=== PATIENT | male | born 1990 | race Two or more races ===

== ENCOUNTER 2021-03-26 07:48 | Emergency (ER) | payer OTHER, SELFPAY ==
[2021-03-26 08:07] VITALS: BP 128/76; PULSE 95; RESP 18; TEMP 36.7; O2SAT 99
[2021-03-26 08:10] LABS: Basophils Percent Auto 0.4 % (0.2-1.2); Eosinophils Absolute Auto 0.1 K/mm3 (0-0.3); Eosinophils Percent Auto 1.1 % (0-4.4); Hematocrit 47.9 % (42.0-52.0); Hemoglobin 16.7 g/dL (14.0-18.0); Immature Granulocyte Absolute 0.06 K/mm3 (0.00-0.031); Immature Granulocyte Percent A 0.8 % (0-0.5); Lymphocytes Absolute Auto 1.72 K/mm3 (0.9-3.2); Lymphocytes Percent Auto 21.8 % (18.3-44.2); Mean Corpuscular HGB Conc 34.9 g/dl (32-36); Mean Corpuscular Hemoglobin 29.5 pg (26-34); Mean Corpuscular Volume 84.6 fl (80-100); Mean Platelet Volume 10.2 fl (7.4-10.4); Monocytes Absolute Auto 0.7 K/mm3 (0.1-0.6); Monocytes Percent Auto 8.4 % (2.6-8.5); Neutrophils Absolute Auto 5.3 K/mm3 (1.3-6.7); Neutrophils Percent Auto 67.5 % (45.5-73.1); Platelet Count Result 180 k/mm3 (150-375); Red Blood Count 5.66 M/mm3 (4.6-6.20); Red Cell Distribution Width 11.9 % (11.5-14.5); White Blood Count 7.9 K/mm3 (4.5-10.0)
[2021-03-26 08:14] LABS: Add Urine Microscopic? NO; Appearance Urine Clear (Clear); Bilirubin Urine Negative (Negative); Blood Urine Negative (Negative); Color Urine Yellow (Yellow); Glucose Urine UA Negative (Negative); Ketones Urine Negative (Negative); Leukocyte Esterase Ur Negative LEU/UL (Negative); Nitrate Urine Negative (Negative); Protein Urine Negative (Negative); Specific Grav Ur 1.023 (1.001-1.035); Urobilinogen Urine Negative mg/dL (<2.0)
[2021-03-26 08:24] LABS: Alanine Aminotransferase 30 U/L (4-50); Albumin Level 4.7 g/dL (3.5-5.1); Alkaline Phosphatase 55 U/L (38-126); Anion Gap 10 mmol/L (8-16); Aspartate Amino Transferase 28 U/L (17-59); Blood Urea Nitrogen 17 mg/dL (9-20); Calcium 9.5 mg/dL (8.4-10.2); Carbon Dioxide 26 mmol/L (22-30); Chloride 102 mmol/L (98-107); Estimated CRCL calculation 108 ml/min; Estimated Glomerular Filt Rate > 60; Glucose 97 mg/dL (75-110); Lipase 56 U/L (23-300); Potassium 3.6 mmol/L (3.4-5.0); Sodium 138 mmol/L (137-145)
--- NOTE | 2021-03-26 08:48 | ED.ABDPAIN ---
HPI - Abdominal Pain General Chief Complaint: Abdominal Pain Stated Complaint: Abd pain, diarrhea Time Seen by Provider: 03/26/21 08:14 History of Present Illness HPI narrative: Patient is a 30-year-old male who presents ER with lower abdominal pain and diarrhea. Reports he began having diarrhea yesterday and has had 6 or more loose stools. The stools were of blood at the end of the bowel movement. Reports it is bright red. No clots. Reports mild irritation around his rectum. No history of hemorrhoids but does have history of perirectal abscess that was excised several years ago. No known history of inflammatory bowel disease. Patient recently traveled to [facility] and returned. Reports he was not eating his cold diet. Reports days having lower abdominal cramping which is new for him. He did take an Imodium last night which slowed down his diarrhea. No fevers or chills or sweats. No known sick contacts. Related Data Allergies Allergy/AdvReac Type Severity Reaction Status Date / Time No Known Allergies Allergy Verified 03/26/21 07:50 Review of Systems Review of Systems: All systems reviewed & are unremarkable except as noted in HPI and below Constitutional: Constitutional: Denies chills, Denies fever(s) and Denies weakness Gastrointestinal: Gastrointestinal: Reports abdominal pain, Denies heartburn, Reports diarrhea, Denies nausea and Denies vomiting Genitourinary: Genitourinary: Denies hematuria and Denies urinary frequency PMFSH Past Medical History Medical History (Updated 03/26/21 @ 09:03 by Armen Myers MD) Perirectal abscess Surgical History Surgical History (Updated 03/26/21 @ 08:50 by Armen Myers MD) History of rectal surgery Perirectal abscess drainage. Social History Social History (Updated 03/26/21 @ 08:51 by Armen Myers MD) Smoking status: Never smoker Gender identity (if verbalized by the patient): Male Exam Narrative: Exam Narrative: GENERAL: Well-appearing, well-nourished, and in no acute distress. HEAD: Normocephalic, atraumatic. CHEST: Clear to auscultation. No respiratory distress. HEART: Regular rate and rhythm. Normal peripheral pulses. ABDOMEN: Soft, nontender, nondistended, hyperactive bowel sounds. External exam of the rectum free of blood/hemorrhoids/fissures. No evidence perirectal abscess. EXTREMITIES: Normal range of motion. No edema. SKIN: Warm, dry, no rash. NEURO: Alert and oriented x3. PSYCH: Normal mood and affect. Course Course Emergency Course: Labs unremarkable. [place] to be a self-limited gastroenteritis. Discharge home. Vital Signs Vital signs: Vital Signs Temperature 98.1 F 03/26/21 08:07 Pulse Rate 95 03/26/21 08:07 Respiratory Rate 18 03/26/21 08:07 Blood Pressure 128/76 03/26/21 08:07 Pulse Oximetry 99 03/26/21 08:07 Temperature 98.1 F 03/26/21 08:07 Pulse Rate 95 03/26/21 08:07 Respiratory Rate 18 03/26/21 08:07 Blood Pressure 128/76 03/26/21 08:07 Pulse Oximetry 99 03/26/21 08:07 MDM - Abdominal Pain Lab Data Result diagrams: 03/26/21 08:00 03/26/21 08:00 Labs: Lab Results 03/26/21 03/26/21 03/26/21 Range/Units 07:59 08:00 08:00 WBC 7.9 (4.5-10.0) K/mm3 RBC 5.66 (4.6-6.20) M/mm3 Hgb 16.7 (14.0-18.0) g/dL Hct 47.9 (42.0-52.0) % MCV 84.6 (80-100) fl MCH 29.5 (26-34) pg MCHC 34.9 (32-36) g/dl RDW 11.9 (11.5-14.5) % Plt Count 180 (150-375) k/mm3 MPV 10.2 (7.4-10.4) fl Immature Gran % (Auto) 0.8 H (0-0.5) % Neut % (Auto) 67.5 (45.5-73.1) % Lymph % (Auto) 21.8 (18.3-44.2) % [place] % (Auto) 8.4 (2.6-8.5) % Eos % (Auto) 1.1 (0-4.4) % Baso % (Auto) 0.4 (0.2-1.2) % Lymph # (Auto) 1.72 (0.9-3.2) K/mm3 [place] # (Auto) 0.7 H (0.1-0.6) K/mm3 Eos # (Auto) 0.1 (0-0.3) K/mm3 Baso # (Auto) 0.0 (0.0-0.1) K/mm3 Abs Immat Gran (auto) 0.06 H
[2021-03-26 09:13] VITALS: BP 118/77; PULSE 88; RESP 15; O2SAT 98
== END 2021-03-26 09:13 | disposition home or self-care (01) ==
PROVIDERS: Emergency Provider Emergency Medicine
DX: K52.9 Noninfective gastroenteritis and colitis, unspecified (principal)
CPT/HCPCS: 36415; 80053; 81003; 83690; 85025; 99283

== ENCOUNTER 2022-02-01 03:59 | Emergency (ER) | payer OTHER, SELFPAY ==
[2022-02-01 04:03] VITALS: BP 119/78; PULSE 67; RESP 16; TEMP 36.5; O2SAT 100
--- NOTE | 2022-02-01 04:41 | ED.SKABFB ---
HPI - Skin/Abscess/Foreign Bdy General Chief complaint: Skin/Abscess/Foreign Body Stated complaint: lump in armpit Time Seen by Provider: 02/01/22 04:15 History of Present Illness HPI narrative: 31-year-old male presenting with boil on his right axilla, no fevers or chills, he has had these before, he did shave before this happened. Related Data Allergies Allergy/AdvReac Type Severity Reaction Status Date / Time No Known Allergies Allergy Verified 03/26/21 07:50 Review of Systems Review of Systems: CONST: No fever. HEENT: No sore throat C/V: No chest pain RESP: No difficulty breathing GI: No nausea vomiting : No groin swelling. M/S: Boil right underarm SKIN: abscess NEURO: [No focal numbness or weakness] PSYCH: [No depression] PMFSH Past Medical History Medical History Perirectal abscess Surgical History Surgical History History of rectal surgery Perirectal abscess drainage. Social History Social History Smoking status: Never smoker Gender identity (if verbalized by the patient): Male Exam Narrative: EXAMINATION OF ORGAN SYSTEMS/BODY AREAS: Constitutional: Vital signs per nursing GENERAL:[No acute distress, non-toxic appearing.] HEAD: Normal with no signs of head trauma. EYES: EOMI, conjunctiva normal ENT: Hearing grossly intact LUNGS: Nonlabored breathing. HEART: [Regular rate and rhythm] EXT: 3 cm fluctuant area underneath the right axilla SKIN: Abscess right axilla NEURO: [Alert and oriented x 3. No gross focal sensory or strength deficits.] PSYCH: Normal affect Course Course Emergency Course: MEDICAL DECISION MAKING AND COURSE IN THE ED WITH INTERPRETATION/REVIEW OF DIAGNOSTIC STUDIES: Electronic medical record was reviewed. Patient presented to the ED with complaint of painful skin rash. Vitals [were within acceptable limits]. Physical exam revealed area of tenderness and induration consistent with abscess in right axilla, [with] fluctuance that may benefit from drainage. Incision and drainage was performed here, verbal consent obtained and risks/benefits explained. Skin was cleaned and 1% sorter pricer with epi solution was injected to make a wheal for local anesthesia. A scalpel was used to make a [3 mm] incision and 2 cc of purulent discharge was expressed from the incision. There was [minimal] bleeding, patient tolerated procedure [well]. Wound was left open to allow for further drainage. [Patient was given Bactrim course to continue at home.] The patient is discharged home in stable condition. I have asked the patient to return to the emergency department for worsening pain, worsening and increasing size of skin infection, fevers/chills. The patient is instructed to follow up with [PCP] in [2] days. Patient verbalized understanding. DISPOSITION: [Home] FOLLOW UP: [PCP] CONDITION: [Fair] FINAL IMPRESSION(S): 1. [Abscess] Roxana Garcia MD Emergency Medicine Vital Signs Vital signs: Vital Signs Temperature 97.7 F 02/01/22 04:03 Pulse Rate 67 02/01/22 04:03 Respiratory Rate 16 02/01/22 04:03 Blood Pressure 119/78 02/01/22 04:03 Pulse Oximetry 100 02/01/22 04:03 Temperature 97.7 F 02/01/22 04:03 Pulse Rate 67 02/01/22 04:03 Respiratory Rate 16 02/01/22 04:03 Blood Pressure 119/78 02/01/22 04:03 Pulse Oximetry 100 02/01/22 04:03 Discharge Plan Discharge Clinical Impression: Folliculitis Abscess of skin or subcutaneous tissue Qualifiers: Site of cutaneous abscess: extremity Site of cutaneous abscess of extremity: axilla Laterality: right Qualified Code(s): L02.411 - Cutaneous abscess of right axilla Patient Disposition: Home, Self-Care Condition: Stable Instructions: Antibiotic Form, Folliculitis (ED), Abscess (ED) Additional Instructions: Come back if you feel wo
== END 2022-02-01 05:37 | disposition home or self-care (01) ==
PROVIDERS: Emergency Provider Emergency Medicine
DX: L02.411 Cutaneous abscess of right axilla (principal); L73.9 Follicular disorder, unspecified
CPT/HCPCS: 10060; 99283